=== PATIENT | female | born 1980 | race Caucasian/White ===

== ENCOUNTER 2017-11-03 23:09 | Emergency (ER) | payer SELFPAY ==
[2017-11-04] MEDS ORDERED: ASPIRIN 81 MG TABLET, CHEWABLE PO ONE (00:35)
--- NOTE | 2017-11-04 00:38 | ER Document Report ---
ED General - General Chief Complaint: Other Stated Complaint: SHOULDER PAIN Time Seen by Provider: 11/04/17 00:27 Notes: Patient is a 37-year-old female who comes emergency department for chief complaint of tingling sensations that she has been getting over her right arm and right leg, she also states that she has felt a little bit short of breath a couple of times, and she had a fleeting sensation of chest pain about mid day. She states that she gets these sensations regularly but the tingling is new. She states that her sister had a heart attack yesterday and she "described similar symptoms" along with the tingling on one side of her body, so she wanted to be checked out. She denies current chest pain, current shortness of breath, current tingling or pain in her shoulder or back. She denies incontinence, fever, nausea or vomiting. She denies any daily medications other than Zyrtec. She smokes. Occasional alcohol, no recreational drugs. Had a . No other medical history reported. TRAVEL OUTSIDE OF THE [place] IN LAST 30 DAYS: No - Related Data Allergies/Adverse Reactions: No Known Allergies Allergy (Verified 11/04/17 00:55) Past Medical History - General Information source: Patient - Social History Smoking Status: Current Every Day Smoker Smoking Education Provided: Yes - <3 min Frequency of alcohol use: Occasional Drug Abuse: None Lives with: Family Family History: CAD Review of Systems - Review of Systems Constitutional: No symptoms reported EENT: No symptoms reported Cardiovascular: See HPI Respiratory: See HPI Gastrointestinal: No symptoms reported Genitourinary: No symptoms reported Female Genitourinary: No symptoms reported Musculoskeletal: See HPI Skin: No symptoms reported Hematologic/Lymphatic: No symptoms reported Neurological/Psychological: See HPI Physical Exam - Vital signs Vitals: Temp Pulse Resp BP Pulse Ox 98.8 F 74 16 116/75 98 11/03/17 23:21 11/03/17 23:21 11/03/17 23:21 11/03/17 23:21 11/03/17 23:21 Course - Re-evaluation Re-evalutation: EKG shows sinus rhythm with no T-wave inversions or ST segment changes in consecutive leads, no acute findings. Chest x-ray shows possible hyperinflation suggesting COPD, patient does smoke. No other acute findings. Vital signs unremarkable. Patient with very nonspecific tingling sensations reported in her right arm and right leg, she has full range of motion, she has no sensory deficit on my evaluation, she has mild tenderness over the right lower lumbar paraspinal muscles, she has a normal neurological examination. Low suspicion of CVA based on her described symptoms and her physical examination. She also had a fleeting feeling of pain and shortness of breath earlier, states that she gets this frequently, atypcial. No current symptoms. Very low suspicion of ACS, pulmonary embolism, or aortic dissection based on her described symptoms, vital signs, risk factors, and workup. Her heart score is 2. Troponin was obtained more than 8 hours after initial reported symptoms of chest pain. Discussed results with patient. Patient is asking for muscle relaxer at home, this will be provided. Patient states that she will stop smoking, she will follow-up with primary care, discussed return precautions, patient states understanding and agreement with plan. - Vital Signs Vital signs: Temp Pulse Resp BP Pulse Ox 98.8 F 74 22 H 108/75 97 11/03/17 23:21 11/03/17 23:21 11/04/17 02:01 11/04/17 02:01 11/04/17 02:01 - Laboratory Result Diagrams: 11/04/17 00:40 11/04/17 00:40 Laboratory results interpreted by me: 11/04/17 11/04/17 00:40 00:40 WBC 11.4 H Sodium 146.9 H Chloride 108 H Discharge - Discharge Clinical Impression: Paresthesias, Muscle spasm Chest pain Qualifiers: Chest pain type: unspecified Qualified Code(s): R07.9 - Chest pain, unspecified Condition: Stable Disposition: HOME, SELF-CARE Additional Instructions: Examination is most suggestive of muscle pain and spasm causing the symptoms. Your workup tonight does not show any concerning findings other than the possibility of you developing COPD on x-ray. You must stop smoking or this will progress to COPD. Follow-up with primary care for additional evaluation and management. Take muscle relaxer as prescribed. Return if you worsen including weakness, numbness, returned pain, difficulty breathing, passing out, or any other concerning or worsening symptoms. Prescriptions: Cyclobenzaprine HCl [Flexeril 5 mg Tablet] 1 - 2 tab PO TID PRN #15 tablet PRN Reason: Referrals: LOCAL,NO [NO LOCAL MD] - Follow up as needed
[2017-11-04 01:10] LABS: ABSOLUTE EOSINOPHILS # (AUTO) 0.1 10^3/uL (0.0-0.6); ABSOLUTE LYMPHOCYTES (AUTO) 3.8 10^3/uL (0.5-4.7); ABSOLUTE MONOCYTES (AUTO) 0.9 10^3/uL (0.1-1.4); ABSOLUTE NEUT (AUTO) 6.6 10^3/uL (1.7-8.2); BASOPHILS % (AUTO) 0.3 % (0-2); EOSINOPHILS % (AUTO) 0.7 % (0-6); HEMATOCRIT 45.3 % (36.0-47.0); HEMOGLOBIN 15.1 g/dL (12.0-15.5); LYMPHOCYTES % (AUTO) 33.6 % (13-45); MEAN CORPUSCULAR HEMOGLOBIN 29.2 pg (27.0-33.4); MEAN CORPUSCULAR HGB CONC 33.4 g/dL (32.0-36.0); MEAN CORPUSCULAR VOLUME 88 fl (80-97); MONOCYTES % (AUTO) 7.9 % (3-13); PLATELET COUNT 265 10^3/uL (150-450); RED BLOOD COUNT 5.18 10^6/uL (3.72-5.28); RED CELL DISTRIBUTION WIDTH 13.2 % (11.5-14.0); SEGMENTED NEUTROPHILS % (AUTO) 57.5 % (42-78); TOTAL CELLS COUNTED % (AUTO) 100 %; WHITE BLOOD COUNT 11.4 10^3/uL (4.0-10.5)
[2017-11-04 01:22] LABS: ALANINE AMINOTRANSFERASE 26 U/L (9-52); ALBUMIN 4.1 g/dL (3.5-5.0); ALKALINE PHOSPHATASE 79 U/L (38-126); ANION GAP 14 (5-19); ASPARTATE AMINO TRANSFERASE 21 U/L (14-36); BILIRUBIN,DIRECT 0.3 mg/dL (0.0-0.4); BILIRUBIN,TOTAL 0.3 mg/dL (0.2-1.3); BLOOD UREA NITROGEN 13 mg/dL (7-20); CALCIUM 9.4 mg/dL (8.4-10.2); CARBON DIOXIDE 25 mmol/L (22-30); CHLORIDE 108 mmol/L (98-107); GLUCOSE 86 mg/dL (75-110); POTASSIUM 3.9 mmol/L (3.6-5.0); SODIUM 146.9 mmol/L (137-145)
--- NOTE | 2017-11-04 01:24 | RADIOLOGY REPORT (SQ) ---
CXR Clinical History: 37-year-old female with chest pain. Comparison: None. Technique: 1 view of the chest submitted for review. Findings: The lungs are hyperaerated. The cardiac silhouette measures within normal. Pulmonary vascularity is unremarkable. Osseous structures are normal for age. Impression: Pulmonary hyperinflation suggestive of COPD. No acute intrathoracic abnormality.
[2017-11-04 02:11] VITALS: BP 108/75
--- NOTE | 2017-11-04 07:36 | EKG REPORT ---
SEVERITY:- NORMAL ECG - SINUS RHYTHM : Confirmed by: Russell Benavides MD 04-Nov-2017 07:35:40
== END 2017-11-04 02:26 | disposition home or self-care (01) ==
LOC: ER 23:09
DX: R20.2 Paresthesia of skin (principal); M62.838 Other muscle spasm; R07.9 Chest pain, unspecified; M79.601 Pain in right arm; R06.02 Shortness of breath; F17.200 Nicotine dependence, unspecified, uncomplicated
CPT/HCPCS: 36415; 71045; 80053; 84484; 84703; 85025; 93005; 93010; 99284

== ENCOUNTER → 2018-05-30 | Outpatient (CLI) | payer MEDICAID ==
--- NOTE | 2018-05-30 12:42 | RADIOLOGY REPORT (SQ) ---
EXAM DESCRIPTION: LUMBAR SPINE COMPLETE COMPLETED DATE/TIME: 05/30/2018 12:28 pm REASON FOR STUDY: ACUTE RT SIDED LBP WITH LEFT SIDED SCIATICA M54.42 LUMBAGO WITH SCIATICA, LEFT SI DE COMPARISON: None. NUMBER OF VIEWS: Five views including obliques. TECHNIQUE: AP, lateral, oblique, and sacral radiographic images acquired of the lumbar spine. LIMITATIONS: None. FINDINGS: MINERALIZATION: Normal. SEGMENTATION: Normal. No transitional anatomy. ALIGNMENT: Normal. VERTEBRAE: Maintained height. No fracture or worrisome bone lesion. DISCS: Mild multilevel disc space narrowing is suggested. No significant osteophytes or end plate i rregularity. POSTERIOR ELEMENTS: Pedicles and facets are intact. No pars defect or posterior arch defects. HARDWARE: None in the spine. PARASPINAL SOFT TISSUES: Normal. PELVIS: Intact as visualized. No fractures or worrisome bone lesions. SI joints intact. OTHER: Bilateral tubal ligation clips in the pelvic region. IMPRESSION: 1. Mild multilevel disc space narrowing suggested. 2. No acute osseous findings. TECHNICAL DOCUMENTATION: JOB ID: [id number]- All Rights Reserved Reading location - IP/workstation name: [email or web address]
== END ==
LOC: OD 12:13
PROVIDERS: ATTEND Nurse Practitioner Family
DX: M54.42 Lumbago with sciatica, left side (principal)
CPT/HCPCS: 72110

== ENCOUNTER → 2018-10-31 | Outpatient (CLI) | payer OTHER, MEDICAID ==
--- NOTE | 2018-10-31 13:35 | RADIOLOGY REPORT (SQ) ---
EXAM DESCRIPTION: KNEE LEFT 3 VIEWS COMPLETED DATE/TIME: 10/31/2018 1:10 pm REASON FOR STUDY: PAIN IN LEFT KNEE M25.572 PAIN IN LEFT ANKLE AND JOINTS OF LEFT FOOT M25.562 [facility] N IN LEFT KNEE COMPARISON: None. NUMBER OF VIEWS: Three views. TECHNIQUE: AP, lateral, and sunrise patella radiographic images acquired of the left knee. LIMITATIONS: None. FINDINGS: MINERALIZATION: Normal. BONES: No acute fracture or dislocation. No worrisome bone lesions. JOINT: No effusion. SOFT TISSUES: No soft tissue swelling. No radio-opaque foreign body. OTHER: No other significant finding. IMPRESSION: NEGATIVE STUDY OF THE LEFT KNEE. NO RADIOGRAPHIC EVIDENCE OF ACUTE INJURY. TECHNICAL DOCUMENTATION: JOB ID: [id number] [employer]- All Rights Reserved Reading location - IP/workstation name: [email or web address]
--- NOTE | 2018-10-31 13:35 | RADIOLOGY REPORT (SQ) ---
EXAM DESCRIPTION: ANKLE LEFT COMPLETE COMPLETED DATE/TIME: 10/31/2018 1:10 pm REASON FOR STUDY: PAIN IN LEFT ANKLE AND JOINTS OF LEFT FOOT M25.572 PAIN IN LEFT ANKLE AND JOINTS OF LEFT FOOT M25.562 PAIN IN LEFT KNEE COMPARISON: None. NUMBER OF VIEWS: Three views. TECHNIQUE: AP, lateral, and oblique radiographic images acquired of the left ankle. LIMITATIONS: None. FINDINGS: MINERALIZATION: Normal. BONES: No acute fracture or dislocation. No worrisome bone lesions. JOINTS: No effusions. SOFT TISSUES: No soft tissue swelling. No foreign body. OTHER: No other significant finding. IMPRESSION: NEGATIVE STUDY OF THE LEFT ANKLE. NO RADIOGRAPHIC EVIDENCE OF ACUTE INJURY. TECHNICAL DOCUMENTATION: JOB ID: [id number] [employer]- All Rights Reserved Reading location - IP/workstation name: [email or web address]
== END ==
LOC: OD 12:49
PROVIDERS: ATTEND Nurse Practitioner Family
DX: M25.572 Pain in left ankle and joints of left foot (principal); M25.562 Pain in left knee